=== PATIENT | male | born 1995 | race African-American/Black ===

== ENCOUNTER 2024-12-09 20:18 | Outpatient (CLI) | payer OTHER, SELFPAY | END 2024-12-09 20:19 | disposition home or self-care (01) | LOC: SLEEP 20:23 | PROVIDERS: Visit Provider Chiropractor | DX: G47.33 Obstructive sleep apnea (adult) (pediatric) (principal); G47.10 Hypersomnia, unspecified | CPT/HCPCS: 95810 ==